=== PATIENT | female | born 1940 ===

== ENCOUNTER 2021-06-27 17:52 | Outpatient (NON) | payer MEDICARE, SELFPAY ==
[2021-06-27 18:21] LABS: Hematocrit 29.9 % (35.0-42.0); Hemoglobin 8.9 g/dL (11.7-13.8); Mean Corpuscular HGB Conc 29.8 g/dL (32.0-36.0); Mean Corpuscular Hemoglobin 26.6 pg (27.0-31.0); Mean Corpuscular Volume 89.5 fL (78.0-102.0); Mean Platelet Volume 10.3 fl (9.2-11.8); Platelet Count Result 273 K/mm3 (150-420); Red Blood Count 3.34 M/mm3 (4.20-5.40); Red Cell Distribution Width 21.3 % (11.6-14.4); White Blood Count 7.1 K/mm3 (4.8-10.8)
[2021-06-27 18:28] LABS: Hemoglobin A1C 7.5 % (<5.7)
[2021-06-27 18:32] LABS: Anion Gap 9 mmol/L (8-16); Blood Urea Nitrogen 32 mg/dL (7-18); Calcium 8.4 mg/dL (8.5-10.1); Carbon Dioxide 29 mmol/L (21-32); Chloride 99 mmol/L (98-108); Estimated Glomerular Filt Rate 32; Glucose 147 mg/dL (70-99); Iron 41 ug/dL (50-170); Osmolality Calculated 293 mOsm/kg (285-295); Potassium 3.7 mmol/L (3.5-5.1); Sodium 137 mmol/L (136-145)
== END 2021-06-27 17:53 | disposition home or self-care (01) ==
LOC: CHSLAB 18:09
PROVIDERS: PCP Family Medicine; Visit Provider Family Medicine
DX: E11.9 Type 2 diabetes mellitus without complications (principal)
CPT/HCPCS: 36415; 80048; 83036; 83540; 85027